=== PATIENT | male | born 1935 | race Caucasian/White ===

== ENCOUNTER 2019-02-03 23:25 | Emergency (ER) | payer MEDICARE, OTHER ==
[2019-02-03 23:37] VITALS: BP 122/78; PULSE 70
[2019-02-04] MEDS ORDERED: Lidocaine 2% Jelly 10 ML Urojet MUCMEM ONE (00:54)
--- NOTE | 2019-02-04 00:58 | EDM.PDOC ---
ED HPI GENERAL MEDICAL PROBLEM - General Chief Complaint: Gastrointestinal Problem Stated Complaint: vomiting red stuff and abdominal cramps Time Seen by Provider: 02/04/19 00:36 Source of Information: Reports: Patient, Family () History Limitations: Reports: Altered Mental Status (Patient with dementia. Entire history provided by his .) - History of Present Illness INITIAL COMMENTS - FREE TEXT/NARRATIVE: The patient's states that the patient was recently diagnosed with dementia. He was started on Aricept about a month ago, and has been tolerating that well, and was then started on memantine (Namenda) this past Sunday, 2018. He vomited after his first dose, then again after taking it on Sunday and , after which the patient's stopped giving it to him. The patient complained of generalized abdominal cramps last night, and still again this morning. He developed nausea and vomiting tonight, the same as he had had after taking Namenda. The patient's noticed that the emesis was rust colored, with phlegm. He has not had any diarrhea or urinary symptoms. No recent fever. The patient's PCP is Dr. Ferro. His Neurologist, whose name his cannot recall, is in [place]. - Related Data Allergies Allergy/AdvReac Type Severity Reaction Status Date / Time No Known Allergies Allergy Verified 02/03/19 23:37 Home Meds: Home Meds atorvaSTATin [Lipitor] 20 mg PO DAILY 12/23/14 [History] Fluticasone Propionate [Flonase] 1 spray NASBOTH DAILY PRN 12/24/14 [History] Cyanocobalamin (Vitamin B-12) [Vitamin B-12] 1,000 mcg PO DAILY 02/03/19 [ History] Donepezil [Aricept] 10 mg PO DAILY 02/03/19 [History] Memantine HCl 5 mg PO DAILY 02/03/19 [History] Tamsulosin HCl [Flomax] 0.8 mg PO BEDTIME 02/03/19 [History] Past Medical History HEENT History: Reports: Allergic Rhinitis, Hard of Hearing Cardiovascular History: Reports: High Cholesterol Genitourinary History: Reports: BPH Neurological History: Reports: Alzheimers Disease Oncologic (Cancer) History: Reports: Prostate (s/p brachytharapy) - Past Surgical History HEENT Surgical History: Reports: Tonsillectomy GI Surgical History: Reports: Appendectomy Musculoskeletal Surgical History: Reports: Carpal Tunnel (right only) Social & Family History - Tobacco Use Smoking Status *Q: Never Smoker - Caffeine Use Caffeine Use: Reports: Coffee - Alcohol Use Alcohol Use History: Yes Alcohol Use Frequency: Socially - Recreational Drug Use Recreational Drug Use: No - Living Situation & Occupation Living situation: Reports: , with Spouse Occupation: Retired ED ROS GENERAL - Review of Systems Review Of Systems: ROS reveals no pertinent complaints other than HPI. ED EXAM, GI/ABD - Physical Exam Exam: See Below Exam Limited By: No Limitations General Appearance: Alert, No Apparent Distress, Thin Eyes: Bilateral: Normal Appearance, EOMI Ears: Normal External Exam, Hearing Loss Nose: Normal Inspection Throat/Mouth: Normal Inspection, Normal Lips, Normal Voice, No Airway Compromise Head: Atraumatic, Normocephalic Neck: Normal Inspection, Full Range of Motion Respiratory/Chest: No Respiratory Distress, Lungs Clear, Normal Breath Sounds, No Accessory Muscle Use Cardiovascular: Normal Peripheral Pulses, Regular Rate, Rhythm, No Edema, No Gallop, No JVD, No Murmur, No Rub GI/Abdominal Exam: Normal Bowel Sounds, Soft, Non-Tender, No Organomegaly, No Distention, No Abnormal Bruit, No Mass (Male) Exam: Deferred Rectal (Males) Exam: Deferred Back Exam: Normal Inspection, Full Range of Motion, NT Extremities: Normal Inspection, Normal Range of Motion, No Pedal Edema, Normal Capillary Refill Neurological: Alert, No Motor/Sensory Deficits, Confused Psychiatric: Normal Affect Skin Exam: Warm, Dry, Intact, Normal Color, No Rash EKG INTERPRETATION EKG Date: 02/04/19 Time: :03 Rhythm: NSR Rate (Beats/Min): 66 [place]: Normal (borderline RAD) P-Wave: Present QRS: RBBB ST-T: Normal QT: Normal Comparison: NA - No Prior EKG Course - Vital Signs Last Recorded V/S: Last Vital Signs Temp 35.9 C 02/03/19 23:32 Pulse 70 02/03/19 23:32 Resp 16 02/03/19 23:32 BP 122/78 02/03/19 23:32 Pulse Ox 94 L 02/03/19 23:32 Orthostatic Blood Pressure [ 106/67 Standing] Orthostatic Blood Pressure [ 123/60 Sitting] Orthostatic Blood Pressure [ 121/74 Supine] - Orders/Labs/Meds Orders: Active Orders 24 hr Category Date Time Status EKG Documentation Completion [RC] STAT Care 02/04/19 00:52 Active Orthostatic Vital Signs [RC] STAT Care 02/04/19 00:55 Active Orthostatic Vital Signs [RC] STAT Care 02/04/19 02:12 Active Orthostatic Vital Signs [RC] STAT Care 02/04/19 03:32 Active Chest 2V [CR] Stat Exams 02/04/19 00:53 Taken Labs: Laboratory Tests 02/04/19 02/04/19 02/04/19 Range/Units 01:05 01:05 01:20 WBC 8.95 (4.23-9.07) K/mm3 RBC 5.25 (4.63-6.08) M/mm3 Hgb 14.2 (13.7-17.5) gm/L Hct 44.6 (40.1-51.0) % MCV 85.0 (79.0-92.2) fl MCH 27.0 (25.7-32.2) pg MCHC 31.8 L (32.2-35.5) g/dl RDW Std Deviation 47.4 H (35.1-43.9) fL Plt Count 270 (163-337) K/mm3 MPV 9.5 (9.4-12.3) fl Neutrophils % (Manual) 84 H (40-60) % Band Neutrophils % 0 (0-10) % Lymphocytes % (Manual) 12 L (20-40) % Atypical Lymphs % 0 % Monocytes % (Manual) 4 (2-10) % Eosinophils % (Manual) 0 L (0.8-7.0) % Basophils % (Manual) 0 L (0.2-1.2) Platelet Estimate Adequate RBC Morph Comment Normal Sodium 140 (136-145) mEq/L Potassium 3.9 (3.5-5.1) mEq/L Chloride 106 (98-107) mEq/L Carbon Dioxide 28 (21-32) mEq/L Anion Gap 9.9 (5-15) BUN 17 (7-18) mg/dL Creatinine 0.9 (0.7-1.3) mg/dL Est Cr Clr Drug Dosing 56.06 mL/min Estimated GFR (MDRD) > 60 (>60) mL/min BUN/Creatinine Ratio 18.9 H (14-18) Glucose 115 (83-115) mg/dL Calcium 8.9 (8.5-10.1) mg/dL Magnesium 2.4 (1.8-2.4) mg/dl Total Bilirubin 0.5 (0.2-1.0) mg/dL AST 15 (15-37) U/L ALT 13 L (16-63) U/L Alkaline Phosphatase 68 (46-116) U/L Troponin I < 0.017 (0.00-0.056) ng/mL Total Protein 6.8 (6.4-8.2) g/dl Albumin 3.5 (3.4-5.0) g/dl Globulin 3.3 gm/dL Albumin/Globulin Ratio 1.1 (1-2) Urine Color Yellow (Yellow) Urine Appearance Clear (Clear) Urine pH 6.5 (5.0-8.0) Ur Specific [place] 1.025 (1.005-1.030) Urine Protein Negative (Negative) Urine Glucose (UA) Negative (Negative) Urine Ketones 2+ H (Negative) Urine Occult Blood 2+ H (Negative) Urine Nitrite Negative (Negative) Urine Bilirubin Negative (Negative) Urine Urobilinogen 0.2 (0.2-1.0) Ur Leukocyte Esterase Negative (Negative) Urine RBC 10-20 H (0-5) /hpf Urine WBC 0-5 (0-5) /hpf Ur Squamous Epith Cells Not seen (0-5) /hpf Urine Bacteria Few (FEW) /hpf Urine Mucus Few (FEW) /hpf Meds: Medications Discontinued Medications Generic Name Dose Route Start Last Admin Trade Name Freq PRN Reason Stop Dose Admin Lactated Ringer's 1,000 mls @ 999 mls/hr 02/04/19 02:12 02/04/19 02:24 Ringers, Lactated IV 02/04/19 03:12 999 mls/hr .BOLUS ONE Administration Lactated Ringer's 1,000 mls @ 999 mls/hr 02/04/19 03:32 02/04/19 03:36 Ringers, Lactated IV 02/04/19 04:32 999 mls/hr .BOLUS ONE Administration Lidocaine HCl 10 ml 02/04/19 00:54 02/04/19 01:11 Xylocaine 2% Jelly MUCMEM 02/04/19 00:55 10 ml ONETIME ONE Administration - Re-Assessments/Exams Free Text/Narrative Re-Assessment/Exam: 02/04/19 00:55 I explained to the patient's that the only way to really see if the rust- colored emesis that the patient has vomited is from blood or not, is to perform an EGD and see if there is a source of bleeding, which is not possible from the emergency department. The patient's seem to understand this. For today's purposes, we will check to make sure that the patient is not excessively anemic , and that he has not suffered any significant fluid or electrolyte shifts, by checking orthostatics, a CBC, a CMP, and a magnesium level. In addition, I have ordered an ECG and troponin to make sure that the patient's emesis is not an unusual presentation of a recent cardiac event, and a urinalysis to rule out a UTI, since the patient has a history of prostate cancer. The patient's does not feel that the patient can provide a clean-catch sample, therefore has agreed for us to collect a urine sample via quick catheter. I have ordered a Urojet. 02/04/19 02:13 The patient is orthostatic. 2-view chest radiograph appears to be grossly normal. The cardiac silhouette is within normal limits. No pulmonary vascular congestion. No pleural effusions. No focal infiltrate. No pneumothorax. Formal read per the Radiologist pending. The patient's CBC is unremarkable. His CMP is unremarkable. His magnesium level is within normal limits at 2.4. His troponin is undetectably low. His urinalysis is unremarkable. I have ordered 1 L of LR, to be followed by repeat orthostatics. 02/04/19 03:32 Following 1 L of LR, the patient is still orthostatic. I have ordered a second liter of LR, to be followed by repeat orthostatics. 02/04/19 04:45 Following a second liter of LR, the patient is no longer orthostatic. 02/04/19 04:51 Test results discussed with the patient and his . I will discharge the patient home. I would like the patient to follow-up with his PCP this week. Departure - Departure Time of Disposition: 04:52 Disposition: Home, Self-Care 01 Condition: Good Clinical Impression: Nausea & vomiting, Orthostasis - Discharge Information *PRESCRIPTION DRUG MONITORING PROGRAM REVIEWED*: Not Applicable *COPY OF PRESCRIPTION DRUG MONITORING REPORT IN PATIENT [facility]CK[facility]: Not Applicable Referrals: Mikey Ferro MD [Primary Care Provider] - Forms: ED Department Discharge Additional Instructions: Mr. George was seen in the emergency room after developing abdominal cramps last night and nausea and vomiting tonight. Workup in the ER included blood work, a urinalysis, positional blood pressure checks, a chest x-ray, and an ECG. His entire workup was unremarkable, except that his blood pressure dropped excessively between lying and standing, a condition known as orthostasis. Mr. George was given 2 L of IV fluid, and his orthostasis resolved. We recommend that you keep him adequately hydrated. Gatorade or Powerade are best. We recommend that you have Mr. George follow-up with his PCP, Dr. Ferro, this week. If any other problems, please do not hesitate to return Mr. George to the ER. - My Orders Last 24 Hours: My Active Orders 02/04/19 00:52 EKG Documentation Completion [RC] STAT 02/04/19 00:53 Chest 2V [CR] Stat 02/04/19 00:55 Orthostatic Vital Signs [RC] STAT 02/04/19 02:12 Orthostatic Vital Signs [RC] STAT 02/04/19 03:32 Orthostatic Vital Signs [RC] STAT - Assessment/Plan Last 24 Hours: My Active Orders 02/04/19 00:52 EKG Documentation Completion [RC] STAT 02/04/19 00:53 Chest 2V [CR] Stat 02/04/19 00:55 Orthostatic Vital Signs [RC] STAT 02/04/19 02:12 Orthostatic Vital Signs [RC] STAT 02/04/19 03:32 Orthostatic Vital Signs [RC] STAT
[2019-02-04] MEDS ORDERED: Lactated Ringers 1,000 ML IV ONE ×2 (02:12→03:32)
--- NOTE | 2019-02-04 06:56 | CR ---
Chest: Two views of the chest were obtained. Comparison: No prior chest imaging. Heart size and mediastinum are felt to be within normal limits. Scoliosis is noted within the spine with scattered disc space narrowing and mild endplate osteophytes. Previous shoulder surgery is noted on the lateral view. Lungs are hyperinflated compatible with emphysematous change. Lobulation of the left hemidiaphragm is incidentally noted. Minimal scarring or atelectasis is seen along the left hemidiaphragm on the PA view. Lungs otherwise are clear. Impression: 1. Findings which are believed to be incidental as noted above. Nothing acute is appreciated. Diagnostic code #2
== END 2019-02-04 05:00 | disposition home or self-care (01) ==
LOC: JD.ED 23:25
DX: R11.2 Nausea with vomiting, unspecified (principal); E78.00 Pure hypercholesterolemia, unspecified; G30.9 Alzheimer's disease, unspecified; F02.80 Dementia in other diseases classified elsewhere, unspecified severity, without behavioral disturbance, psychotic disturbance, mood disturbance, and anxiety; Z79.899 Other long term (current) drug therapy; Z90.49 Acquired absence of other specified parts of digestive tract; Z98.890 Other specified postprocedural states
CPT/HCPCS: 36415; 71046; 71046-26; 80053; 81001; 83735; 84484; 85007; 85027; 93005; 93010; 96360; 96361; 99283; 99284-25; J7120

== ENCOUNTER 2019-06-06 12:28 | Emergency (ER) | payer MEDICARE, OTHER ==
[2019-06-06 12:40] VITALS: BP 133/68; PULSE 69
[2019-06-06] MEDS ORDERED: Sodium Chloride 0.9% 10 ML Syringe FLUSH PRN (12:42)
--- NOTE | 2019-06-06 13:06 | CR ---
Chest: Portable view of the chest was obtained. Comparison: Prior chest x-ray of 02/04/19. Findings: Heart size is normal. Slight fullness within the left hilar region is seen which appears stable and likely is incidental. Upper mediastinum is otherwise normal. Blunting of the lateral left costophrenic angle is seen which appears chronic. No acute parenchymal change is seen. Mild scoliosis is noted within the spine. Impression: 1. Findings as noted above. 2. Nothing acute is appreciated. Diagnostic code #2 This report was dictated in [place] Standard Time
--- NOTE | 2019-06-06 13:15 | EDM.PDOC ---
ED HPI GENERAL MEDICAL PROBLEM - General Chief Complaint: Chest Pain Stated Complaint: CHEST PAIN Time Seen by Provider: 06/06/19 12:41 Source of Information: Reports: Patient, RN Notes Reviewed History Limitations: Reports: No Limitations - History of Present Illness INITIAL COMMENTS - FREE TEXT/NARRATIVE: Patient is an 83-year-old male who presents to the ED for the evaluation of left -sided chest pain. Patient notes that around 10 AM this morning, he was shoveling snow when he developed some left-sided chest pain after this. He states that this was a sharp pain in his left chest with no radiation to his left arms or jaw. He states he did not have any nausea or vomiting with this as well, there is no numbness or tingling into his extremities. He denied any shortness of breath or any sort of diaphoresis with this. notes he does not have any history of heart problems, his primary care provider is Dr. Ferro. Left Anterior Chest Pain Score (Numeric/FACES): 6 - Related Data Allergies Allergy/AdvReac Type Severity Reaction Status Date / Time No Known Allergies Allergy Verified 02/03/19 23:37 Home Meds: Home Meds atorvaSTATin [Lipitor] 20 mg PO DAILY 12/23/14 [History] Cyanocobalamin (Vitamin B-12) [Vitamin B-12] 1,000 mcg PO DAILY 02/03/19 [ History] Donepezil [Aricept] 10 mg PO DAILY 02/03/19 [History] Memantine HCl 5 mg PO DAILY 02/03/19 [History] Tamsulosin HCl [Flomax] 0.8 mg PO BEDTIME 02/03/19 [History] Past Medical History HEENT History: Reports: Allergic Rhinitis, Hard of Hearing Other HEENT History: post-nasal drip Cardiovascular History: Reports: High Cholesterol Genitourinary History: Reports: BPH Neurological History: Reports: Alzheimers Disease Hematologic History: Reports: B12 Deficiency Oncologic (Cancer) History: Reports: Prostate Dermatologic History: Reports: Other (See Below) (birthmark on left chest and inner left arm) - Past Surgical History HEENT Surgical History: Reports: Tonsillectomy GI Surgical History: Reports: Appendectomy Musculoskeletal Surgical History: Reports: Carpal Tunnel Social & Family History - Tobacco Use Smoking Status *Q: Former Smoker Used Tobacco, but Quit: Yes Month/Year Tobacco Last Used: 60 years - Caffeine Use Caffeine Use: Reports: Coffee - Alcohol Use Days Per Week of Alcohol Use: 1 Number of Drinks Per Day: 2 Total Drinks Per Week: 2 - Recreational Drug Use Recreational Drug Use: No - Living Situation & Occupation Living situation: Reports: , with Spouse Occupation: Retired ED ROS GENERAL - Review of Systems Review Of Systems: See Below Constitutional: Denies: Fever, Chills, Malaise, Diaphoresis, Decreased Appetite Respiratory: Denies: Shortness of Breath, Cough Cardiovascular: Reports: Chest Pain (L sided sharp sudden chest pain). Denies: Blood Pressure Problem, Dyspnea on Exertion, Lightheadedness, Palpitations GI/Abdominal: Denies: Abdominal Pain, Nausea, Vomiting Musculoskeletal: Denies: Neck Pain, Shoulder Pain, Arm Pain Neurological: Denies: Confusion, Dizziness, Headache, Numbness, Tingling ED EXAM, GENERAL - Physical Exam Exam: See Below Exam Limited By: No Limitations General Appearance: Alert, WD/WN, No Apparent Distress Eye Exam: Bilateral Eye: EOMI, Normal Inspection, PERRL Throat/Mouth: Normal Inspection, Normal Lips, Normal Teeth, Normal Gums, Normal Oropharynx, Normal Voice, No Airway Compromise Head: Atraumatic, Normocephalic Neck: Normal Inspection Respiratory/Chest: No Respiratory Distress, Lungs Clear, Normal Breath Sounds, No Accessory Muscle Use, Chest Non-Tender Cardiovascular: Normal Peripheral Pulses, Regular Rate, Rhythm, No Edema, No Murmur Peripheral Pulses: 3+: Radial (L), Radial (R) GI/Abdominal: Normal Bowel Sounds, Soft, Non-Tender, No Distention, No Mass Extremities: Normal Inspection, Normal Range of Motion, Normal Capillary Refill Neurological: Alert, Oriented, Normal Cognition, No Motor/Sensory Deficits Psychiatric: Normal Affect, Normal Mood Skin Exam: Warm, Dry, Intact, Normal Color, No Rash EKG INTERPRETATION EKG Date: 06/06/19 Time: 12:34 Rhythm: NSR Rate (Beats/Min): 65 [place]: Normal P-Wave: Present QRS: RBBB (incomplete) ST-T: Normal QT: Normal EKG Interpretation Comments: Reviewed with Dr. Cormier. No acute ischemic change noted Course - Vital Signs Last Recorded V/S: Last Vital Signs Temp 98.0 F 06/06/19 12:37 Pulse 69 01/03/20 12:37 Resp 23 H 06/06/19 12:37 BP 133/68 06/06/19 12:37 Pulse Ox 98 06/06/19 12:37 - Orders/Labs/Meds Orders: Active Orders 24 hr Category Date Time Status EKG Documentation Completion [RC] STAT Care 06/06/19 12:42 Ordered Peripheral IV Care [RC] . DIRECTED Care 06/06/19 12:42 Ordered Sodium Chloride 0.9% [Saline Flush] Med 06/06/19 12:42 Ordered 10 ml FLUSH ASDIRECTED PRN Peripheral IV Insertion Adult [OM.PC] Stat Oth 06/06/19 12:42 Ordered Medication Orders Sodium Chloride (Saline Flush) 10 ml FLUSH ASDIRECTED PRN PRN Reason: Keep Vein Open Last Admin: 06/06/19 12:51 Dose: 10 ml Labs: Laboratory Tests 06/06/19 06/06/19 06/06/19 Range/Units 12:40 12:40 12:40 WBC 8.25 (4.23-9.07) K/mm3 RBC 5.99 (4.63-6.08) M/mm3 Hgb 15.4 (13.7-17.5) gm/dl Hct 49.3 (40.1-51.0) % MCV 82.3 (79.0-92.2) fl MCH 25.7 (25.7-32.2) pg MCHC 31.2 L (32.2-35.5) g/dl RDW Std Deviation 59.5 H (35.1-43.9) fL Plt Count 270 (163-337) K/mm3 MPV 9.3 L (9.4-12.3) fl Neutrophils % (Manual) 70 H (40-60) % Band Neutrophils % 0 (0-10) % Lymphocytes % (Manual) 18 L (20-40) % Atypical Lymphs % 0 % Monocytes % (Manual) 10 (2-10) % Eosinophils % (Manual) 2 (0.8-7.0) % Basophils % (Manual) 0 L (0.2-1.2) Platelet Estimate Adequate Anisocytosis 1+ slight RBC Morph Comment Not Reportable PT 10.9 (9.7-12.0) SECONDS INR 1.00 APTT 28 (22-31) SECONDS Sodium 139 (136-145) mEq/L Potassium 3.7 (3.5-5.1) mEq/L Chloride 103 (98-107) mEq/L Carbon Dioxide 25 (21-32) mEq/L Anion Gap 14.7 (5-15) BUN 14 (7-18) mg/dL Creatinine 1.0 (0.7-1.3) mg/dL Est Cr Clr Drug Dosing 52.92 mL/min Estimated GFR (MDRD) > 60 (>60) mL/min BUN/Creatinine Ratio 14.0 (14-18) Glucose 137 H (83-115) mg/dL Calcium 9.1 (8.5-10.1) mg/dL Magnesium 2.3 (1.8-2.4) mg/dl Total Bilirubin 0.4 (0.2-1.0) mg/dL AST 19 (15-37) U/L ALT 23 (16-63) U/L Alkaline Phosphatase 77 (46-116) U/L Troponin I < 0.017 (0.00-0.056) ng/mL NT-Pro-B Natriuret Pep (0-450) pg/mL Total Protein 7.4 (6.4-8.2) g/dl Albumin 3.8 (3.4-5.0) g/dl Globulin 3.6 gm/dL Albumin/Globulin Ratio 1.1 (1-2) 06/06/19 Range/Units 12:40 WBC (4.23-9.07) K/mm3 RBC (4.63-6.08) M/mm3 Hgb (13.7-17.5) gm/dl Hct (40.1-51.0) % MCV (79.0-92.2) fl MCH (25.7-32.2) pg MCHC (32.2-35.5) g/dl RDW Std Deviation (35.1-43.9) fL Plt Count (163-337) K/mm3 MPV (9.4-12.3) fl Neutrophils % (Manual) (40-60) % Band Neutrophils % (0-10) % Lymphocytes % (Manual) (20-40) % Atypical Lymphs % % Monocytes % (Manual) (2-10) % Eosinophils % (Manual) (0.8-7.0) % Basophils % (Manual) (0.2-1.2) Platelet Estimate Anisocytosis RBC Morph Comment PT (9.7-12.0) SECONDS INR APTT (22-31) SECONDS Sodium (136-145) mEq/L Potassium (3.5-5.1) mEq/L Chloride (98-107) mEq/L Carbon Dioxide (21-32) mEq/L Anion Gap (5-15) BUN (7-18) mg/dL Creatinine (0.7-1.3) mg/dL Est Cr Clr Drug Dosing mL/min Estimated GFR (MDRD) (>60) mL/min BUN/Creatinine Ratio (14-18) Glucose (83-115) mg/dL Calcium (8.5-10.1) mg/dL Magnesium (1.8-2.4) mg/dl Total Bilirubin (0.2-1.0) mg/dL AST (15-37) U/L ALT (16-63) U/L Alkaline Phosphatase (46-116) U/L Troponin I (0.00-0.056) ng/mL NT-Pro-B Natriuret Pep 96 (0-450) pg/mL Total Protein (6.4-8.2) g/dl Albumin (3.4-5.0) g/dl Globulin gm/dL Albumin/Globulin Ratio (1-2) Meds: Medications Generic Name Dose Route Start Last Admin Trade Name Freq PRN Reason Stop Dose Admin Sodium Chloride 10 ml 06/06/19 12:42 06/06/19 12:51 Saline Flush FLUSH 10 ml ASDIRECTED PRN Administration Keep Vein Open - Re-Assessments/Exams Free Text/Narrative Re-Assessment/Exam: 06/06/19 13:16 Patient presents to the ED for the evaluation of left-sided chest pain. EKG was done at time of triage, and demonstrates no acute ischemic changes, sinus rhythm at 65/min, left atrial hypertrophy pattern, incomplete right bundle branch pattern, diffuse early repolarization pattern and T wave flattening in aVL and V2. This was reviewed by myself and Dr. Cormier. Routine labs will also be done, to rule out NSTEMI. 06/06/19 13:38 Abs have been resulted, and Trope is negative, all other labs are essentially unremarkable as well. Likely the patient may have just had some musculoskeletal strain, will discharge home with general recommendations and have him follow-up with his primary care provider next week to make sure his symptoms are improving. Departure - Departure Time of Disposition: 13:38 Disposition: Home, Self-Care 01 Condition: Fair Clinical Impression: Left-sided chest pain Instructions: Chest Wall Pain, [id number] Referrals: Mikey Ferro MD [Primary Care Provider] - Forms: ED Department Discharge Additional Instructions: You were evaluated in the ER today regarding your left-sided chest pain. EKG was done, and you also had lab work obtained, and these demonstrated no sign of an acute heart attack at today's visit. Chest x-ray was also not remarkable for any sort of pneumonia or other acute abnormalities. The pain you are feeling, may very well be due to a musculoskeletal strain in nature, as you were shoveling snow at this time. You may try some Tylenol or ibuprofen every 6 hours as needed for further pain relief, do not exceed 4000 mg Tylenol or 3200 mg ibuprofen in a 24-hour time span. Recommend that you follow-up with your primary care provider next week sometime for recheck your symptoms make sure everything is getting better as expected. Please return to the ER at any time if your symptoms change or worsen. Sepsis Event Note - Evaluation Sepsis Screening Result: No Definite Risk - Focused Exam Vital Signs: Vital Signs Temp Pulse Resp BP Pulse Ox 06/06/19 12:37 98.0 F 69 23 H 133/68 98 Date Exam was Performed: 06/06/19 Time Exam was Performed: 13:38 - My Orders Last 24 Hours: My Active Orders 06/06/19 12:42 EKG Documentation Completion [RC] STAT Peripheral IV Care [RC] . DIRECTED Sodium Chloride 0.9% [Saline Flush] 10 ml FLUSH ASDIRECTED PRN Peripheral IV Insertion Adult [OM.PC] Stat - Assessment/Plan Last 24 Hours: My Active Orders 06/06/19 12:42 EKG Documentation Completion [RC] STAT Peripheral IV Care [RC] . DIRECTED Sodium Chloride 0.9% [Saline Flush] 10 ml FLUSH ASDIRECTED PRN Peripheral IV Insertion Adult [OM.PC] Stat
== END 2019-06-06 13:53 | disposition home or self-care (01) ==
LOC: JD.ED 12:28
DX: R07.89 Other chest pain (principal); E78.00 Pure hypercholesterolemia, unspecified; G30.9 Alzheimer's disease, unspecified; F02.80 Dementia in other diseases classified elsewhere, unspecified severity, without behavioral disturbance, psychotic disturbance, mood disturbance, and anxiety; Z87.891 Personal history of nicotine dependence; Z79.899 Other long term (current) drug therapy
CPT/HCPCS: 36415; 71045; 71045-26; 80053; 83735; 83880; 84484; 85007; 85027; 85610; 85730; 93005; 93010; 99283; 99285-25

== ENCOUNTER 2021-02-19 19:05 | Emergency (ER) | payer MEDICARE, OTHER ==
[2021-02-19 19:24] VITALS: BP 138/69; PULSE 84
--- NOTE | 2021-02-19 19:37 | EDM.PDOC ---
ED HPI GENERAL MEDICAL PROBLEM - General Chief Complaint: Genitourinary Problem Stated Complaint: PAINFUL & BLOOD IN URINE Time Seen by Provider: 02/19/21 19:22 Source of Information: Reports: Patient, Family (spouse) History Limitations: Reports: No Limitations - History of Present Illness INITIAL COMMENTS - FREE TEXT/NARRATIVE: 85-year-old male presents to the ED in the accompaniment of his who provides most of the history. The patient is very hard of hearing and has mild dementia. He started to complain of lower abdominal discomfort about 2 hours ago. reports that he voided at home and it was pure bloody urine. Since coming to the ED he is gone three times all containing blood with a sense of urgency. Most of the pain he states is in his penis. Patient has a history of prostate cancer treated with cesium seed implants about 20 years ago. Currently no noted fever or chills. reports that he did not eat all that well today. Onset: Today, Sudden Onset Date: 02/19/21 Onset Time: 18:00 Duration: Minutes:, Constant, Getting Worse (Urinary frequency and urgency with gross hematuria) Location: Reports: Abdomen (Lower abdominal suprapubic pain radiating into the penis), Other. Denies: Back Quality: Reports: Burning Severity: Moderate Improves with: Reports: None Worsens with: Reports: Other (Painful to void.) Context: Denies: Activity, Exercise, Lifting, Sick Contact, Trauma, Other Associated Symptoms: Reports: Loss of Appetite (He did eat today but his reports not), Malaise. 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.) - Related Data Allergies Allergy/AdvReac Type Severity Reaction Status Date / Time No Known Allergies Allergy Verified 02/19/21 19:24 Home Meds: Home Meds Donepezil [Aricept] 10 mg PO DAILY 02/03/19 [History] Tamsulosin HCl [Flomax] 0.8 mg PO BEDTIME 02/03/19 [History] Cefdinir [Omnicef] 300 mg PO BID #20 cap 02/19/21 [Rx] Finasteride [Proscar] 5 mg PO DAILY 02/19/21 [History] Oxybutynin [Oxybutynin ER] 5 ml PO DAILY 02/19/21 [History] Phenazopyridine HCl [Pyridium] 100 mg PO Q6H #3 tablet 02/19/21 [Rx] Past Medical History HEENT History: Reports: Allergic Rhinitis, Hard of Hearing Other HEENT History: post-nasal drip Cardiovascular History: Reports: High Cholesterol Respiratory History: Reports: None Gastrointestinal History: Reports: Other (See Below) Other Gastrointestinal History: hernia repair Genitourinary History: Reports: BPH Musculoskeletal History: Reports: None Neurological History: Reports: Alzheimers Disease Psychiatric History: Reports: Alzheimers Disease Endocrine/Metabolic History: Reports: None Hematologic History: Reports: B12 Deficiency Immunologic History: Reports: None Oncologic (Cancer) History: Reports: Prostate (Prostate cancer treated with cesium seed implants 20 years ago) Dermatologic History: Reports: Other (See Below) Other Dermatologic History: port wine milton - Past Surgical History HEENT Surgical History: Reports: Tonsillectomy Other HEENT Surgeries/Procedures: Nose surgery GI Surgical History: Reports: Appendectomy Musculoskeletal Surgical History: Reports: Carpal Tunnel Social & Family History - Tobacco Use Tobacco Use Status *Q: Never Tobacco User Second Hand Smoke Exposure: No - Caffeine Use Caffeine Use: Reports: Coffee - Living Situation & Occupation Living situation: Reports: , with Spouse Occupation: Retired ED ROS GENERAL - Review of Systems Review Of Systems: See Below Constitutional: Reports: Decreased Appetite. Denies: Fever, Chills, Malaise, Weakness, Fatigue, Weight Loss HEENT: Reports: Glasses, Hearing Loss Respiratory: Reports: Shortness of Breath. Denies: Wheezing, Pleuritic Chest Pain, Cough, Sputum Cardiovascular: Reports: Dyspnea on Exertion. Denies: Chest Pain, Blood Pressure Problem, Claudication, Edema, Lightheadedness, Orthopnea Endocrine: Reports: Fatigue GI/Abdominal: Reports: Abdominal Pain. Denies: Hematemesis, Hematochezia, Nausea, Vomiting : Reports: Dysuria, Frequency, Other (patient wears a Depends as he is incontinent of urine. Has aneurogenic bladder) Musculoskeletal: Reports: Back Pain Skin: Reports: Other (Port wine stain Lt forearm and Lt precordial chest. ) Neurological: Reports: Confusion (mild confusion. Has early dementia. ) Psychiatric: Reports: No Symptoms Hematologic/Lymphatic: Reports: No Symptoms Immunologic: Reports: No Symptoms ED EXAM, RENAL/ - Physical Exam Exam: See Below Exam Limited By: Physical Impairment (very hard of hearing. His provides most of the history.) Eye Exam: Bilateral Eye: Normal Inspection (no scleral icterus or blepharal pallor. ), PERRL Throat/Mouth: Normal Inspection, Normal Lips, Normal Oropharynx Head: Atraumatic, Normocephalic Neck: Normal Inspection, Full Range of Motion, Tender Lateral. No: Lymphadenopathy (L), Lymphadenopathy (R) Respiratory/Chest: No Respiratory Distress, Lungs Clear, Normal Breath Sounds, No Accessory Muscle Use, Decreased Breath Sounds (mildly decreased to the lower 15% of lung harp. ) Cardiovascular: Normal Peripheral Pulses, Regular Rate, Rhythm, No Edema, No Gallop, No Murmur, No Rub GI/Abdominal: Normal Bowel Sounds, Soft, Non-Tender, No Organomegaly, No Mass, Pelvis Stable, Other ( Has had Rt ingual hernia repair ) (Male) Exam: No Hernia, Circumcised, Other (blood at urethral meatus. ) Back Exam: Normal Inspection. No: CVA Tenderness (L), CVA Tenderness (R) Extremities: Normal Inspection, No Pedal Edema Neurological: Alert, Oriented, CN II-XII Intact, Confused ( pleasantly confused. ) Psychiatric: Normal Affect, Normal Mood Skin Exam: Warm, Dry, Intact, Normal Color, Other (port wine stain volar Lt forearm and Lt anterior chest. ) Course - Vital Signs Last Recorded V/S: Last Vital Signs Temp 37.3 C 02/19/21 19:23 Pulse 84 02/19/21 19:23 Resp 18 02/19/21 19:23 BP 138/69 02/19/21 19:23 Pulse Ox 99 02/19/21 19:23 - Orders/Labs/Meds Orders: Active Orders 24 hr Category Date Time Status Bladder Scan [RC] ASDIRECTED Care 02/19/21 19:36 Active Labs: Laboratory Tests 02/19/21 Range/Units 19:30 Urine Color Red H (Yellow) Urine Appearance Turbid H (Clear) Urine pH 5.5 (5.0-8.0) Ur Specific [place] 1.020 (1.005-1.030) Urine Protein 3+ H (Negative) Urine Glucose (UA) Negative (Negative) Urine Ketones 1+ H (Negative) Urine Occult Blood 3+ H (Negative) Urine Nitrite Positive H (Negative) Urine Bilirubin 2+ H (Negative) Urine Urobilinogen 2.0 H (0.2-1.0) Ur Leukocyte Esterase 3+ H (Negative) Urine RBC Too numerous to cnt H (0-5) /hpf Urine WBC >100 H (0-5) /hpf Urine WBC Clumps Few (NOT SEEN) /hpf Ur Epithelial Cells Not seen (0-5) /hpf Urine Bacteria Moderate H (FEW) /hpf Urine Mucus Not seen (FEW) /hpf Meds: Medications Discontinued Medications Generic Name Dose Route Start Last Admin Trade Name Freq PRN Reason Stop Dose Admin Levofloxacin 500 mg 02/19/21 20:21 Levofloxacin 250 Mg Tab PO 02/19/21 20:22 ONETIME ONE Phenazopyridine HCl 95 mg 02/19/21 20:22 Phenazopyridine 95 Mg Tab PO 02/19/21 20:23 ONETIME ONE - Radiology Interpretation Free Text/Narrative:: 85-year-old male attends the ED in the company of his . Chief complaint is mild lower abdominal pain associated with painful urination starting a couple hours ago. He showed his his urine which was gross hematuria. Since coming to the ED apparently he has voided 3 times. Urinalysis has not yet been collected but will be. He is in no other discomfort and afebrile. 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 No previous urinary tract infection problems. He is noted to have a neurogenic bladder. He wears a depends at all times since he is incontinent of urine. Plan urinalysis bladder scan post void. - Re-Assessments/Exams Free Text/Narrative Re-Assessment/Exam: 02/19/21 20:21 Urinalysis is red with gross hematuria. 3+ proteinuria 1+ ketones 3+ occult blood positive nitrates 2+ bilirubin and 3+ leukocyte esterase. Red blood cells are too numerous to count. White blood cells are greater than 100 per high-power field. Moderate bacteria identified. Urine culture will be ordered Post void residual was 0. No signs of urinary retention. Departure - Departure Time of Disposition: 20:22 Disposition: Home, Self-Care 01 Condition: Fair Clinical Impression: Acute lower urinary tract infection Prostatitis Qualifiers: Prostatitis type: acute Qualified Code(s): N41.0 - Acute prostatitis - Discharge Information *PRESCRIPTION DRUG MONITORING PROGRAM REVIEWED*: Not Applicable *COPY OF PRESCRIPTION DRUG MONITORING REPORT IN PATIENT [facility]: Not Applicable Prescriptions: Cefdinir [Omnicef] 300 mg PO BID #20 cap Phenazopyridine HCl [Pyridium] 100 mg PO Q6H #3 tablet Referrals: Mikey Ferro MD [Primary Care Provider] - Forms: ED Department Discharge Additional Instructions: Evaluation in the emergency room today in regards to development of lower abdominal pain associate with bloody urine and urinary frequency with dysuria or painful urination. You were treated with Pyridium 95 mg by mouth in the emergency department and initial antibiotic Levaquin 500 mg. You'll need to take Pyridium 100 mg every 6 hours until gone which will relieve urge to void and some of the pain associated with voiding until the antibiotics become effective. You will need to take antibiotic Omnicef 300 mg twice daily for the next 10 days starting tomorrow morning. Suggest follow-up with primary care physician approximately 7 to 10 days after finishing the antibiotics to have a repeat urinalysis done in the clinic to see if infection has been fully eradicated. It would be okay to take Motrin 600 mg every 6 hours as needed as well for relief of painful urination. Sepsis Event Note (ED) - Focused Exam Vital Signs: Vital Signs Temp Pulse Resp BP Pulse Ox 02/19/21 19:23 37.3 C 84 18 138/69 99 - My Orders Last 24 Hours: My Active Orders 02/19/21 19:36 Bladder Scan [RC] ASDIRECTED - Assessment/Plan Last 24 Hours: My Active Orders 02/19/21 19:36 Bladder Scan [RC] ASDIRECTED
[2021-02-19] MEDS ORDERED: Levofloxacin 250 MG Tab PO ONE (20:21)
[2021-02-19] MEDS ORDERED: Phenazopyridine 95 MG Tab PO ONE (20:22)
== END 2021-02-19 20:45 | disposition home or self-care (01) ==
LOC: JD.ED 19:05
DX: N41.0 Acute prostatitis (principal); N39.0 Urinary tract infection, site not specified
CPT/HCPCS: 51798; 81001; 99284; A9270; 99283

== ENCOUNTER 2021-12-01 15:38 | Emergency (ER) | payer MEDICARE, OTHER ==
[2021-12-01 16:10] VITALS: BP 148/87; PULSE 67
[2021-12-01] MEDS ORDERED: Sodium Chloride 0.9% 10 ML Syringe FLUSH PRN (16:30)
[2021-12-01 17:43] LABS: ESTIMATED GFR 73 mL/min (>60)
== END 2021-12-01 18:45 | disposition home or self-care (01) ==
LOC: JD.ED 15:38
DX: H53.2 Diplopia (principal); E78.00 Pure hypercholesterolemia, unspecified; N40.0 Benign prostatic hyperplasia without lower urinary tract symptoms; Z79.899 Other long term (current) drug therapy
CPT/HCPCS: 36415; 70450; 80053; 81001; 83735; 84443; 85025; 86140; 99284-25; J3490

== ENCOUNTER 2024-02-18 17:43 | Inpatient (IN) | payer MEDICARE, OTHER ==
[2024-02-18 18:01] LABS: BASOPHILS PERCENT AUTO 0.2 % (0.0-1.0); EOSINOPHILS PERCENT AUTO 0.2 % (0.0-6.0); HEMATOCRIT 48.1 % (42.0-52.0); HEMOGLOBIN 15.4 gm/dl (14.0-18.0); IMMATURE GRAN ABSOLUTE AUTO 0.03 K/mm3 (0.00-0.05); IMMATURE GRAN PERCENT AUTO 0.4 % (0.0-0.4); LYMPHOCYTES ABSOLUTE AUTO 0.9 K/mm3 (1.0-4.8); LYMPHOCYTES PERCENT AUTO 11.1 % (24.0-44.0); MEAN CORPUSCULAR HEMOGLOBIN 28.8 pg (28.0-32.0); MEAN CORPUSCULAR VOLUME 90.1 fl (83.0-99.0); MEAN PLATELET VOLUME 9.1 fl (9.4-12.4); MONOCYTES ABSOLUTE AUTO 1.4 K/mm3 (0.0-0.8); MONOCYTES PERCENT AUTO 16.3 % (0.0-8.0); NEUTROPHILS PERCENT AUTO 71.8 % (41.0-71.0); PLATELET COUNT,PLT 222 K/mm3 (150-400); RED BLOOD CELL COUNT 5.34 M/mm3 (4.52-5.90); WHITE BLOOD CELL COUNT,WBC 8.36 K/mm3 (3.9-11.3)
[2024-02-18] MEDS: Iopamidol 755 Mg/ML 100 ML Bottle IVPUSH ONE (18:14)
[2024-02-18] MEDS ORDERED: Sodium Chloride 0.9% 100 ML IV SCH (18:15)
[2024-02-18 18:19] LABS: ALANINE AMINOTRANSFERASE,ALT 36 U/L (16-63); ALBUMIN 3.6 g/dl (3.4-5.0); ALKALINE PHOSPHATASE 85 U/L (46-116); ANION GAP 16.1 (5-15); BILIRUBIN TOTAL 0.6 mg/dL (0.2-1.0); BLOOD UREA NITROGEN,BUN 15 mg/dL (7-18); BUN/CREATININE RATIO 16.7 (14-18); CALCIUM 8.8 mg/dL (8.5-10.1); CARBON DIOXIDE,CO2 24 mEq/L (21-32); CHLORIDE,CL 102 mEq/L (98-107); CREATININE 0.9 mg/dL (0.7-1.3); ESTIMATED GFR 82 mL/min (>60); GLUCOSE RANDOM 102 mg/dL (70-99); PROTEIN TOTAL,TP 7.2 g/dl (6.4-8.2); SODIUM,NA 138 mEq/L (136-145)
[2024-02-18 18:40] LABS: POTASSIUM,K 4.1 mEq/L (3.5-5.1)
[2024-02-18 18:41] LABS: ASPARTATE AMNIOTRANSFERASE,AST 36 U/L (15-37); CREATINE KINASE,CK 184 U/L (39-308)
[2024-02-18 19:22] LABS: CORONAVIRUS COVID-19 NAA POSITIVE (NEGATIVE); INFLUENZA A NAA NEGATIVE (NEGATIVE); RESPIRATORY SYNCYTIAL VIR NAA NEGATIVE (NEGATIVE)
[2024-02-18] MEDS: Acetaminophen 325 MG Tab PO PRN (21:26)
[2024-02-18] MEDS: atorvaSTATin 20 MG Tab PO SCH (21:26)
[2024-02-18] MEDS: Finasteride 5 MG Tab PO SCH (21:26)
[2024-02-18] MEDS: Oxybutynin 5 MG Tab.ER PO SCH (21:26)
[2024-02-18] MEDS: Aspirin 81 MG Tab.Chew PO SCH (21:26)
[2024-02-18] MEDS: Cyanocobalamin (Vitamin B12) 1,000 MCG Tab PO SCH (21:27)
[2024-02-18] MEDS: Donepezil 10 MG Tab PO SCH (21:27)
[2024-02-18] MEDS: Tamsulosin 0.4 MG Cap.ER PO SCH (21:27)
[2024-02-19] MEDS ORDERED: Enoxaparin 40 MG/0.4 ML Syringe SUBCUT SCH (09:00)
[2024-02-19] MEDS ORDERED: Ondansetron 4 MG Tab.DIS PO PRN (09:10)
[2024-02-19] MEDS ORDERED: Polyethylene Glycol 3350 Powder 17 GM Packet PO PRN (09:10)
[2024-02-19] MEDS ORDERED: Albuterol/Ipratropium 3.0-0.5 MG/3 ML Neb Soln NEB PRN (09:10)
[2024-02-19] MEDS ORDERED: Docusate Sodium 100 MG Cap PO PRN (09:10)
[2024-02-19] MEDS ORDERED: REMDESIVIR 200 MG in Sodium Chloride 0.9% 250 ML IV ONE (09:13)
[2024-02-19] MEDS ORDERED: Cyanocobalamin (Vitamin B12) 1,000 MCG Tab PO SCH (09:15)
[2024-02-19] MEDS ORDERED: Finasteride 5 MG Tab PO SCH (09:15)
[2024-02-19] MEDS ORDERED: Aspirin 81 MG Tab.EC PO SCH (09:15)
[2024-02-19] MEDS ORDERED: atorvaSTATin 20 MG Tab PO SCH (09:15)
[2024-02-19] MEDS ORDERED: Oxybutynin 5 MG Tab PO SCH (09:15)
[2024-02-19] MEDS ORDERED: Fluticasone NASAL Spray 16 GM Bottle NASBOTH SCH (10:00)
[2024-02-19] MEDS ORDERED: Dexamethasone 6 MG TABLET PO SCH (10:00)
[2024-02-19] MEDS ORDERED: Donepezil 10 MG Tab PO SCH (10:00)
[2024-02-19] MEDS ORDERED: Oxybutynin 5 MG Tab.ER PO SCH (10:00)
[2024-02-19] MEDS: REMDESIVIR 200 MG in Sodium Chloride 0.9% 250 ML IV ONE (10:25)
[2024-02-19] MEDS: Enoxaparin 40 MG/0.4 ML Syringe SUBCUT SCH (11:36)
[2024-02-19] MEDS: Dexamethasone 6 MG TABLET PO SCH (11:37)
[2024-02-19] MEDS: atorvaSTATin 20 MG Tab PO SCH (16:13)
[2024-02-19] MEDS: Aspirin 81 MG Tab.EC PO SCH (16:13)
[2024-02-19] MEDS: Oxybutynin 5 MG Tab.ER PO SCH (16:13)
[2024-02-19] MEDS: Cyanocobalamin (Vitamin B12) 1,000 MCG Tab PO SCH (16:13)
[2024-02-19] MEDS: Finasteride 5 MG Tab PO SCH (16:13)
[2024-02-19] MEDS: Non-Formulary Medication 1 Each (Fluticasone Furoate [Arnuity Ellipta] 50 MCG Blst.W.Dev) NAS SCH (16:47)
[2024-02-19] MEDS: Fluticasone NASAL Spray 16 GM Bottle NASBOTH SCH (20:22)
[2024-02-19] MEDS: Donepezil 10 MG Tab PO SCH (20:23)
[2024-02-19] MEDS: Tamsulosin 0.4 MG Cap.ER PO SCH (20:23)
[2024-02-20] MEDS ORDERED: DONEPEZIL 5 MG PO SCH (09:00)
[2024-02-20] MEDS: REMDESIVIR 100 MG in Sodium Chloride 0.9% 250 ML IV SCH (09:43)
[2024-02-21 05:36] LABS: BASOPHILS PERCENT AUTO 0.1 % (0.0-1.0); HEMATOCRIT 46.4 % (42.0-52.0); HEMOGLOBIN 15.3 gm/dl (14.0-18.0); IMMATURE GRAN ABSOLUTE AUTO 0.06 K/mm3 (0.00-0.05); IMMATURE GRAN PERCENT AUTO 0.6 % (0.0-0.4); LYMPHOCYTES ABSOLUTE AUTO 1.3 K/mm3 (1.0-4.8); LYMPHOCYTES PERCENT AUTO 11.5 % (24.0-44.0); MEAN CORPUSCULAR HEMOGLOBIN 28.8 pg (28.0-32.0); MEAN CORPUSCULAR VOLUME 87.4 fl (83.0-99.0); MEAN PLATELET VOLUME 9.7 fl (9.4-12.4); MONOCYTES PERCENT AUTO 9.5 % (0.0-8.0); NEUTROPHILS ABSOLUTE AUTO 8.5 K/mm3 (1.8-7.7); NEUTROPHILS PERCENT AUTO 78.3 % (41.0-71.0); PLATELET COUNT,PLT 203 K/mm3 (150-400); RED BLOOD CELL COUNT 5.31 M/mm3 (4.52-5.90); WHITE BLOOD CELL COUNT,WBC 10.89 K/mm3 (3.9-11.3)
[2024-02-21 05:44] LABS: ALBUMIN 3.2 g/dl (3.4-5.0); ANION GAP 12.7 (5-15); BILIRUBIN TOTAL 0.3 mg/dL (0.2-1.0); C-REACTIVE PROTEIN 0.96 mg/dL (<0.30); CALCIUM 8.9 mg/dL (8.5-10.1); CREATININE 0.7 mg/dL (0.7-1.3); EST CRCL DRUG DOSING (CG) 66.89 mL/min; MAGNESIUM 2.1 mg/dL (1.8-2.4); PROTEIN TOTAL,TP 6.4 g/dl (6.4-8.2)
[2024-02-21 06:06] LABS: POTASSIUM,K 3.7 mEq/L (3.5-5.1)
[2024-02-21] MEDS: Potassium Chloride 20 MEQ Tab.ER PO ONE (09:36)
[2024-02-22 05:26] LABS: BASOPHILS PERCENT AUTO 0.1 % (0.0-1.0); HEMOGLOBIN 16.3 gm/dl (14.0-18.0); IMMATURE GRAN ABSOLUTE AUTO 0.06 K/mm3 (0.00-0.05); IMMATURE GRAN PERCENT AUTO 0.5 % (0.0-0.4); LYMPHOCYTES ABSOLUTE AUTO 1.4 K/mm3 (1.0-4.8); LYMPHOCYTES PERCENT AUTO 12.5 % (24.0-44.0); MEAN CORPUSCULAR HEMOGLOBIN 28.6 pg (28.0-32.0); MEAN CORPUSCULAR HGB CONC 33.3 g/dl (32.0-36.0); MEAN PLATELET VOLUME 9.7 fl (9.4-12.4); MONOCYTES ABSOLUTE AUTO 1.1 K/mm3 (0.0-0.8); MONOCYTES PERCENT AUTO 9.9 % (0.0-8.0); NEUTROPHILS ABSOLUTE AUTO 8.7 K/mm3 (1.8-7.7); PLATELET COUNT,PLT 211 K/mm3 (150-400); WHITE BLOOD CELL COUNT,WBC 11.24 K/mm3 (3.9-11.3)
[2024-02-22 05:47] LABS: A/G RATIO 0.9 (1-2); ALBUMIN 3.2 g/dl (3.4-5.0); ANION GAP 14.8 (5-15); BILIRUBIN TOTAL 0.4 mg/dL (0.2-1.0); C-REACTIVE PROTEIN 0.47 mg/dL (<0.30); CALCIUM 8.9 mg/dL (8.5-10.1); CREATININE 0.7 mg/dL (0.7-1.3); EST CRCL DRUG DOSING (CG) 66.89 mL/min; POTASSIUM,K 3.8 mEq/L (3.5-5.1); PROTEIN TOTAL,TP 6.8 g/dl (6.4-8.2)
[2024-02-22 16:14] VITALS: BP 138/69; PULSE 69
[2024-02-22] MEDS ORDERED: Fluticasone NASAL Spray 16 GM Bottle NASBOTH SCH (21:00)
== END 2024-02-22 16:43 | disposition home or self-care (01) | DRG 177 ==
LOC: JD.ED 17:43 → JD.MS 02-19 09:07
PROVIDERS: ADMIT Student in an Organized Health Care Education/Training Program; ATTEND Student in an Organized Health Care Education/Training Program
PROC: XW033E5 Introduction of Remdesivir Anti-infective into Peripheral Vein, Percutaneous Approach, New Technology Group 5 (ICD-10-PCS; principal; 2024-02-18)
PROC: 3E0DX3Z Introduction of Anti-inflammatory into Mouth and Pharynx, External Approach (ICD-10-PCS; 2024-02-18)
DX: U07.1 COVID-19 (principal); J96.01 Acute respiratory failure with hypoxia; E87.1 Hypo-osmolality and hyponatremia; G30.9 Alzheimer's disease, unspecified; F02.80 Dementia in other diseases classified elsewhere, unspecified severity, without behavioral disturbance, psychotic disturbance, mood disturbance, and anxiety; Z66 Do not resuscitate; N40.0 Benign prostatic hyperplasia without lower urinary tract symptoms; E53.8 Deficiency of other specified B group vitamins; E78.00 Pure hypercholesterolemia, unspecified; R29.700 NIHSS score 0; Z86.16 Personal history of COVID-19; Z90.89 Acquired absence of other organs; Z79.82 Long term (current) use of aspirin; Z79.899 Other long term (current) drug therapy; W19.XXXA Unspecified fall, initial encounter
CPT/HCPCS: 0241U; 36415; 51702; 70450; 70496; 70498; 71045; 80053; 81001; 82306; 82550; 82746; 82947; 83735; 84484; 85025; 85379; 85610; 85730; 86140; 93005; 94640; 94667; 94668; 94760; 94761; 97161; 99285; 93010; 99284; A9270-GY; C1758; J0248; J1650; J7050; J8540; Q9967